=== PATIENT | male | born 1980 | race African-American/Black ===

== ENCOUNTER 2023-04-21 12:50 | Emergency (ER) | payer SELFPAY | END 2023-04-21 14:56 | disposition home or self-care (01) | LOC: CSHERS 12:50 | DX: S33.5XXA Sprain of ligaments of lumbar spine, initial encounter (principal); E11.9 Type 2 diabetes mellitus without complications; I10 Essential (primary) hypertension; F17.210 Nicotine dependence, cigarettes, uncomplicated; X50.0XXA Overexertion from strenuous movement or load, initial encounter | CPT/HCPCS: 96372; 99283 ==

== ENCOUNTER 2024-07-08 09:54 | Emergency (ER) | payer BC ==
[2024-07-08 10:47] LABS: Bilirubin Neg (Negative); Blood, Urine 25 (Negative); Clarity Clear (Clear); Glucose, Urine (Dipstick) Normal (Negative); Ketone, Urine Negative (Negative); Leukocyte Negative (Negative); Nitrite Negative (Negative); Protein, Urine (Dipstick) 30 mg/dl (Neg-Trace)
[2024-07-08 10:58] LABS: Bacteria/HPF 1+ HPF (None Seen); CAUTI Indications for Culture Pelvic or flank pain; Squamous Epithelial None Seen HPF (0-3); WBC/HPF 0-3 HPF (0-3)
[2024-07-08 10:59] LABS: Urine Culture Reflex No No
== END 2024-07-08 11:55 | disposition home or self-care (01) ==
LOC: CSHERS 09:54
DX: N43.3 Hydrocele, unspecified (principal); E11.9 Type 2 diabetes mellitus without complications; I10 Essential (primary) hypertension; Z55.6 Problems related to health literacy
CPT/HCPCS: 76870; 81001; 93976